=== PATIENT | male | born 1965 | race African-American/Black ===

== ENCOUNTER 2018-05-05 10:24 | Emergency (ER) | payer SELFPAY ==
[2018-05-05] MEDS ORDERED: Ketorolac Tromethamine 60 MG/2 ML VIAL ONE (12:27)
[2018-05-05] MEDS ORDERED: traMADol HCl 50 MG TAB ONE (12:28)
--- NOTE | 2018-05-05 13:25 | RAD ---
CERVICAL SPINE 4 VIEWS: INDICATION: Neck pain. COMPARISON: Cervical spine exam of 10/01/2015. FINDINGS: Multilevel fusion changes are noted with anterior plate extending from C3 through C7. There are scre ws at C3 and the c7 vertebrae. Interbody fusion at these levels. There are posterior pedicle screws throughout these levels. The postoperative changes and hardware have not significantly changed when compared to 2016. C2-3 disk space is maintained and unchanged in appearance. The C7-T1 disk space is preserved and unchanged. No abnormal listhesis. The C1-C2 level appears stable and unremarkable. IMPRESSION: Stable postoperative changes of the cervical spine. POS: [facility]
== END 2018-05-05 13:44 | disposition home or self-care (01) ==
LOC: ERS 10:24
DX: M54.2 Cervicalgia (principal); G89.29 Other chronic pain; I10 Essential (primary) hypertension; F32.9 Major depressive disorder, single episode, unspecified; F17.210 Nicotine dependence, cigarettes, uncomplicated; Z79.899 Other long term (current) drug therapy
CPT/HCPCS: 72040; 96372; J1885

== ENCOUNTER 2018-07-25 06:46 | Day surgery (SDC) | payer OTHER ==
[2018-07-24 11:34] VITALS: BMI 31.3
--- NOTE | 2018-07-25 09:19 | RAD ---
CERVICAL MYELOGRAM: HISTORY: Cervical pain COMPARISON: None FINDINGS: Exposure: 0.8 minutes fluoroscopy time, 285.0 mGy*m^2. Field Research Assistant 2 view lumbar spine demonstrates 5 lumbar type vertebral bodies. Vertebral body height is maint ained. No fracture. Osteophyte formation at L3-L4. Field Research Assistant 1 view cervical spine demonstrates extensive fusion hardware. Successful lumbar puncture at the L2-L3 level. A total of 10 mL of Isovue-M 300 contrast was instruct ed TECHNIQUE: Consent obtained to perform a lumbar puncture for intrathecal contrast administration. Skin was prepp ed and draped in a sterile fashion. 1% lidocaine, buffered with sodium bicarbonate was used for local anesthesia. Under fluoroscopic guidance, a 22-gauge spinal needle was advanced into the CSF spa ce. Prompt flow of clear CSF to the hub of the needle. Via a short tubing catheter, a total of 10 mL of Isovue-M 300 contrast was administered intrathecally. Patient tolerated the procedure well. No immediate or postprocedure complications IMPRESSION: Successful lumbar puncture for cervical myelogram. Transcribed Date/Time: 07/25/2018 10:05 AM
--- NOTE | 2018-07-25 09:23 | CT ---
POST MYELOGRAM CERVICAL SPINE CT: HISTORY:Cervical pain COMPARISON: None Technique: Cervical spine CT is performed in the axial length. Three-dimensional reformatted images are submitte d FINDINGS: Anterior fusion plate with transvertebral body screw at C3 and C7. Corpectomy from C4 through C6 with bone plug. Posterior fusion hardware from C3 through C7, without evidence of perihardware lucency. Cervical spine vertebral body height is maintained. No fracture. Appropriate alignment of the lateral masses of C1 and C2 as well as the facets. Intact odontoid proce ss Soft tissue neck structures are unremarkable Upper mediastinum and lung apices are unremarkable C2-C3: Central disc osteophyte complex with mild central canal stenosis. Neural foramina are patent b ilaterally. C3-C4: Limited evaluation from beam attenuation artifact. No high-grade central canal stenosis. Moder ate right and mild left foraminal narrowing due to uncovertebral hypertrophy. C4-C5:No significant central canal stenosis. Mild right foraminal narrowing due to uncovertebral hype rtrophy. Left neural foramen is patent. C5-C6: No significant central canal stenosis. Mild right foraminal narrowing. Left neural foramen is patent. C6-C7:No significant central canal stenosis. Mild right foraminal narrowing due to uncovertebral hype rtrophy. Left neural foramen is patent. C7-T1: No significant central canal stenosis. Neural foramina are patent. IMPRESSION: 1.Cervical fusion and corpectomy changes as described above. No perihardware lucency. 2. Varying degrees of central canal stenosis and foraminal narrowing as detailed above. Transcribed Date/Time: 07/25/2018 10:08 AM
--- NOTE | 2018-07-25 09:29 | RAD ---
Exam: Cervical spine 3 views HISTORY: Cervical fusion COMPARISON: 05/05/2018 FINDINGS: Anterior fusion plate with transvertebral body screws at C3 and C7. The plate traverses the C4, C5 and C6 levels. The C4, C5 and C6 vertebral bodies are absent, due to corpectomy. Bone plug is noted. Posterior fusion changes from C3 through C7 without perihardware lucency. In the neutral position, there is straightening of normal cervical lordosis. No abnormal motion upon extension or flexion. No prevertebral soft tissue swelling IMPRESSION: Uncomplicated cervical fusion and corpectomy changes as described above.
== END 2018-07-25 09:45 | disposition home or self-care (01) ==
LOC: RAD 06:46 → EDSTATUS 08:00 → RAD 09:45
PROVIDERS: ATTEND Neurological Surgery
DX: M48.02 Spinal stenosis, cervical region (principal); I10 Essential (primary) hypertension; F32.9 Major depressive disorder, single episode, unspecified; G43.909 Migraine, unspecified, not intractable, without status migrainosus
CPT/HCPCS: 62302; 72040; 72126

== ENCOUNTER 2019-10-02 07:47 | Outpatient (CLI) | payer OTHER ==
--- NOTE | 2019-10-02 08:28 | CT ---
EXAM: CT cervical spine PROVIDED CLINICAL HISTORY: Cervical spinal stenosis. Cervical radiculopathy. History of prior neck surgery. Patient complains of neck pain with sharp pain extending down neck. Right hand weakness. TECHNIQUE: Contiguous axial CT images are obtained through the cervical spine from the skull base to the T2 leve l. Sagittal and coronal reformatted images are provided. COMPARISON: CT cervical myelogram 07/25/2018 FINDINGS: Postoperative changes cervical spine are again noted. Evidence of corpectomy from C4 through C6 with interbody graft material present. Again noted is evidence of anterior cervical fusion with anterior plate extending from C3 to C7 with anterior screws in C3 and C7 vertebral bodies. Evidence of posteri or fusion is again seen with bipedicular screws and posterior rods transfixing C3-C7. No hardware complication is appreciated. No fracture or subluxation is identified. Mild facet degenerative change s are seen on the right at the C7-T1 level. No prevertebral soft tissue swelling apparent. Visualized lung apices appear clear. IMPRESSION: Stable postoperative changes cervical spine with evidence of cervical spine fusion and corpectomy isabela nges as described above. No hardware complication is appreciated on this exam.
--- NOTE | 2019-10-02 09:33 | MRI ---
MRI CERVICAL SPINE WITHOUT CONTRAST: Date: 10/02/2019 INDICATION: Radiculopathy. HISTORY: Patient is post cervical spine surgery in 2016. 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 Comparison made to prior CT scans of cervical spine, most recent performed earlier today. FINDINGS: Postoperative changes are again seen. Anterior fusion with corpectomy at C4, C5, and C6 with interbod y graft material and anterior plate and screws, which are better defined on CT. Mild loss of height of the C3 vertebra. Loss of disc space at C3-4. The C7-T1 disc space is preserved . At C2-3, minimal disc bulge and spondylosis does abut the anterior cord. No central canal or foramina l stenosis. At C3-4, mild posterior spondylosis effaces the anterior subarachnoid space. No cord impingement. The anterior subarachnoid space is generous throughout the region of corpectomy involving C4, C5, and C6. There is no central canal or foraminal stenosis at any of these levels. At C7-T1, mild disc bulge and spondylosis minimally efface the anterior subarachnoid space. Review of the cervical cord shows a linear area of abnormal increased T2 signal to the right of midli ne at the C4 level. 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 N o other cord abnormality identified. IMPRESSION: 1. Postoperative changes with corpectomy and interbody graft involving C4, C5, and C6 vertebra. Find ings and hardware are better delineated on CT cervical spine performed earlier today. 2. Spondylosis abuts the anterior cord at C2-3. Disc bulge and spondylosis efface the anterior subar achnoid space at C7-T1. 3. A small linear area of increased T2 signal within the cord to the right of midline at the C4 leve l consistent with myelomalacia change from prior cord injury. POS: [facility]
== END 2019-10-02 07:48 | disposition home or self-care (01) ==
LOC: TBSIIMAG 07:47
PROVIDERS: ATTEND Neurological Surgery
DX: M48.02 Spinal stenosis, cervical region (principal); M47.22 Other spondylosis with radiculopathy, cervical region; Z98.1 Arthrodesis status
CPT/HCPCS: 72125; 72141